=== PATIENT | female | born 1960 | race Caucasian/White ===

== ENCOUNTER → 2018-01-17 | Outpatient (CLI) | payer OTHER ==
[~2018-01-17] MED LIST: AMBIEN 10 MG TA10 MG; CLONAZEPAM 1 MG1 M1; LOVASTAT20; NAPROSYN500 MG PO; NORCO 5-325 TA1 EACH PO; PAXIL; PENICILLIN VK250 MG PO; ROBAXIN 750 MG750 M1 PO; XANAX XR1 MG; ZOLOFT 50 MG TA50 M1
== END ==
LOC: M.RAD 11:46
DX: J98.4 Other disorders of lung (principal); Z72.0 Tobacco use

== ENCOUNTER 2018-11-07 15:00 | Emergency (ER) | payer OTHER ==
[~2018-11-07] VITALS: Ht 154.9 cm; Wt 60.8 kg
[2018-11-07] MEDS ORDERED: TRAZODONE HCL50 MG PO (15:08)
[2018-11-07] MEDS ORDERED: LIPITOR10 MG PO (15:08)
[2018-11-07 15:35] LABS: ABSOLUTE LYMPHOCYTES 2.4 thou/uL (0.8-5.3); ABSOLUTE MONOCYTES 0.5 thou/uL (0.0-1.2); BASOPHILS 0.5 %; EOSINOPHILS 0.6 %; HEMATOCRIT 36.7 % (37.0-47.0); HEMOGLOBIN 12.8 gm/dL (12.0-15.0); LYMPHOCYTES 30.3 %; MCHC 34.9 g/dL (28.0-37.0); MCV 100.3 fL (80.0-100.0); MONOCYTES 6.4 %; MPV 6.8 fl. (7.2-11.1); NUCLEATED RBCS 0 /100WBC; PLATELET COUNT* 385 thou/uL (150-400); POLYS 62.2 %; RBC 3.66 mil/uL (4.20-5.00); RDW-CV 12.3 % (10.5-14.5)
[2018-11-07 15:40] LABS: ANION GAP 9 mmol/L (7-16); BUN 11 mg/dL (7-18); CHLORIDE 101 mmol/L (98-107); CO2 29 mmol/L (21-32); CREATININE 0.7 mg/dL (0.6-1.3); GLUCOSE 90 mg/dL (70-99); POTASSIUM 4.1 mmol/L (3.5-5.1); SODIUM 139 mmol/L (136-145)
[2018-11-07 15:51] LABS: ALBUMIN 3.8 g/dL (3.4-5.0); ALKALINE PHOSPHATASE 77 U/L (46-116); NT-PRO BRAIN NAT PEPTIDE 134 pg/mL (<300); SGOT 25 U/L (15-37); SGPT 34 U/L (30-65); TOTAL BILIRUBIN 0.3 mg/dL (<0.1-1.0); TOTAL PROTEIN 7.1 g/dL (6.4-8.2); TROPONIN-I LEVEL <0.06 ng/mL (<0.06)
[2018-11-07] MEDS ORDERED: VENTOLIN HFA 1818 GM INH (17:24)
[2018-11-07] MEDS ORDERED: AZITHROMYCIN500 MG PO (17:24)
[2018-11-07] MEDS ORDERED: MEDROLDOSEPACK PO (17:24)
[2018-11-07] MEDS ORDERED: NORCO 5-325 TA1 EAC1 PO (17:24)
[2018-11-07] MEDS ORDERED: NAPROSYN500 MG PO (17:24)
[2018-11-07] MEDS ORDERED: BREO ELLIPTA 11 EACH INH (17:25)
[2018-11-07 17:40] VITALS: BP 143/74
--- NOTE | 2018-11-10 12:17 | EKG ---
[place] [address] ELECTROCARDIOGRAM REPORT Name: NICOL JOSEPH Room: [facility]#: [id number] Admission: 11/07/18 Attend Phys: Discharge: 11/07/18 Date of : 62 Report #: [id number] THIS REPORT FOR: //name// [facility] ED Test Date: 2018-11-07 Test Time: 15:07:03 Pat Name: NICOL JOSEPH Department: Room: Gender: F Materials Tech: DARLING : 1960 Requested By: Naun Zhang Order Number: [id number] MD: Ramin Corrales Measurements Intervals [place] Rate: 74 P: 87 OK: 148 QRS: 71 QRSD: 80 T: 53 QT: 390 QTc: 433 Interpretive Statements Sinus rhythm Baseline wander in lead(s) I,III,aVL Compared to ECG 01/02/2011 11:42:18 Sinus arrhythmia no longer present Electronically Signed On 11-10-2018 12:17:25 CDT by Ramin Corrales [email or web address] <ELECTRONICALLY SIGNED> By: Ramin Corrales MD, [facility] 11/10/18 1217 1507 150 Ramin Corrales MD, [facility] /EPI
== END 2018-11-07 17:40 | disposition home or self-care (01) ==
LOC: M.ERS 15:00
PROVIDERS: Nurse Practitioner Family
DX: N64.4 Mastodynia (principal); J43.9 Emphysema, unspecified; R07.89 Other chest pain; R42 Dizziness and giddiness; F41.9 Anxiety disorder, unspecified; F17.210 Nicotine dependence, cigarettes, uncomplicated; Z90.710 Acquired absence of both cervix and uterus; Z98.890 Other specified postprocedural states

== ENCOUNTER 2020-02-15 14:37 | Emergency (ER) | payer OTHER ==
[~2020-02-15] VITALS: Ht 157.5 cm; Wt 62.1 kg
[~2020-02-15 14:37] MED LIST changes: +AZITHROMYCIN500 MG PO; +BREO ELLIPTA 11 EACH INH; +LIPITOR10 MG PO; +MEDROLDOSEPACK PO; +NORCO 5-325 TA1 EAC1 PO; +TRAZODONE HCL50 MG PO; +VENTOLIN HFA 1818 GM INH
[2020-02-15] MEDS ORDERED: CELEXA40 MG PO (14:50)
[2020-02-15 15:12] LABS: URINE BILIRUBIN NEGATIVE (Negative); URINE BLOOD NEGATIVE (Negative); URINE CLARITY CLEAR; URINE COLOR YELLOW; URINE GLUCOSE-RANDOM NEGATIVE (Negative); URINE KETONES NEGATIVE (Negative); URINE LEUKOCYTES-REFLEX NEGATIVE (Negative); URINE NITRITE-REFLEX NEGATIVE (Negative); URINE PROTEIN NEGATIVE (Negative); URINE UROBILINOGEN 0.2 E.U./dl (0.2-1.0)
[2020-02-15 15:17] LABS: ABSOLUTE MONOCYTES 0.2 thou/uL (0.0-1.2); ABSOLUTE NEUTROPHILS 6.5 thou/uL (1.6-8.1); BASOPHILS 0.2 %; HEMATOCRIT 38.8 % (37.0-47.0); HEMOGLOBIN 13.1 gm/dL (12.0-15.0); LYMPHOCYTES 12.7 %; MCH 33.8 pg (26.0-34.0); MCHC 33.7 g/dL (28.0-37.0); MCV 100.5 fL (80.0-100.0); MONOCYTES 2.5 %; MPV 6.8 fl. (7.2-11.1); NUCLEATED RBCS 0 /100WBC; PLATELET COUNT* 399 thou/uL (150-400); POLYS 84.6 %; RBC 3.86 mil/uL (4.20-5.00); RDW-CV 12.7 % (10.5-14.5); WBC 7.7 thou/uL (4.0-11.0)
[2020-02-15 15:19] LABS: AMP/METHAMP Negative (Negative); BARBITURATES Negative (Negative); BENZODIAZEPINES Negative (Negative); COCAINE Negative (Negative); METHADONE Negative (Negative); OPIATES Negative (Negative); PCP Negative (Negative); THC POSITIVE (Negative)
[2020-02-15 15:46] LABS: CALCIUM 8.8 mg/dL (8.5-10.1); CREATININE 0.8 mg/dL (0.6-1.3); POTASSIUM 3.9 mmol/L (3.5-5.1)
[2020-02-15 15:50] LABS: ALBUMIN 4.1 g/dL (3.4-5.0); TOTAL BILIRUBIN 0.3 mg/dL (<0.1-1.0); TOTAL PROTEIN 7.7 g/dL (6.4-8.2)
--- NOTE | 2020-02-15 17:57 | EKG ---
[place] [address] ELECTROCARDIOGRAM REPORT Name: NICOL JOSEPH Room: [facility]#: [id number] Admission: 02/15/20 Attend Phys: Discharge: Date of : 62 Date of Service: 02/15/20 1458 Report #: [id number] THIS REPORT FOR: //name// [facility] ED Test Date: 2020-02-15 Test Time: 14:58:07 Pat Name: NICOL JOSEPH Department: Room: Gender: F Correspondence Dictator: [facility] : 1960 Requested By: Thu Penaloza Order Number: [id number] MD: Chevy Santos Measurements Intervals [place] Rate: 59 P: 54 MA: 146 QRS: 66 QRSD: 79 T: 38 QT: 448 QTc: 444 Interpretive Statements Sinus rhythm Borderline repolarization abnormality Nonspecific T wave flattening Baseline wander in lead(s) II,III,aVR,aVL,aVF Compared to ECG 11/07/2018 15:07:03 No significant changes Electronically Signed On 02-15-2020 17:57:22 CDT by Chevy Santos [email or web address] <ELECTRONICALLY SIGNED> By: Chevy Santos MD, FACC 02/15/20 1757 1458 1458 Chevy Santos MD, FACC /EPI
[2020-02-15 18:29] VITALS: BP 115/70
== END 2020-02-15 18:30 | disposition home or self-care (01) ==
LOC: M.ERS 14:37
PROVIDERS: Personal Emergency Response Attendant
DX: N95.1 Menopausal and female climacteric states (principal); F41.9 Anxiety disorder, unspecified; F17.210 Nicotine dependence, cigarettes, uncomplicated; Z98.890 Other specified postprocedural states; Z90.710 Acquired absence of both cervix and uterus; Z79.899 Other long term (current) drug therapy